=== PATIENT | male | born 1985 | race Caucasian/White ===

== ENCOUNTER 2019-01-09 14:26 | Emergency (ER) | payer MEDICAID, SELFPAY ==
[~2019-01-09] VITALS: Ht 180.3 cm; Wt 85.8 kg
[2019-01-09 14:35] VITALS: BP 127/74
== END 2019-01-09 15:25 | disposition home or self-care (01) ==
LOC: ED 15:16
DX: L02.11 Cutaneous abscess of neck (principal); Z88.0 Allergy status to penicillin; Z88.2 Allergy status to sulfonamides
CPT/HCPCS: 10060; 99283

== ENCOUNTER 2019-08-09 00:50 | Emergency (ER) | payer MEDICAID ==
[~2019-08-09] VITALS: Ht 180.3 cm; Wt 86.9 kg
[2019-08-09] MEDS ORDERED: KETOROLAC 60 MG/2 ML ONE (01:13)
[2019-08-09] MEDS ORDERED: ALBUTEROL SULFATE 2.5 MG/3 ML NPPB ONE (01:30)
[2019-08-09] MEDS ORDERED: KETOROLAC 30 MG/1 ML IM ONE (01:30)
--- NOTE | 2019-08-09 01:30 | NUR ---
REPORT RECEIVED FROM MÓNICA FERREIRA RN. FIRST CONTACT WITH PATIENT: THIS IS A 33 YO MALE COMING IN FOR COUGH/FLU LIKE SYMPTOMS FOR THE PAST 2-3 DAYS, DIARRHEA STARTING TODAY. PATIENT STATES HIS COWORKER AND HIS FAMILY ARE ON QUARANTINE FOR THE NEXT 4 DAYS FOR INFLUENZA B. PATIENT CURRENTLY C/O RIGHT RIB PAIN "I THINK IT WAS FRACTURED AND THE COUGHING IS MAKING IT WORSE", COUGH/ SOB. LUNG SOUNDS AUSCULTATED, RIGHT MIDDLE AND LOWER LOBE INSPIRATORY RHONCHI HEARD, WELL LEFT LOWER LOBE. VSS, NAD AT THIS TIME, RT IN ROOM. CXR COMPLETED.
[2019-08-09 01:35] LABS: RAPID INFLUENZA A Negative (Negative); RAPID INFLUENZA B Negative (Negative)
[2019-08-09] MEDS ORDERED: CLINDAMYCIN 300 MG CAPSULE ONE (02:10)
[2019-08-09] MEDS ORDERED: HYDROcodone/APAP 5/325 TABLET ONE (02:10)
--- NOTE | 2019-08-09 02:17 | NUR ---
PATIENT MEDICATED PER EMAR
[2019-08-09] MEDS ORDERED: CLINDAMYCIN 300 MG CAPSULE PO ONE (02:30)
[2019-08-09] MEDS ORDERED: HYDROcodone/APAP 5/325 TABLET PO ONE (02:30)
[2019-08-09 02:42] VITALS: BP 120/78
--- NOTE | 2019-08-09 02:42 | NUR ---
Patient given discharge instructions and they have confirmed that they understand the instructions. Patient ambulatory with steady gait. Addendum: 08/09/19 at 0257 by DEMAR Paient aware he is to self-isolate for the next 3 days or until phone call receivd with COVID results
== END 2019-08-09 02:58 | disposition home or self-care (01) ==
LOC: ED 02:45
DX: J20.8 Acute bronchitis due to other specified organisms (principal); Z20.828 Contact with and (suspected) exposure to other viral communicable diseases; B97.89 Other viral agents as the cause of diseases classified elsewhere; K61.1 Rectal abscess; F17.200 Nicotine dependence, unspecified, uncomplicated
CPT/HCPCS: 71045; 87400; 94640; 96372; 99284; J1885; J7512; J7613

== ENCOUNTER 2020-07-23 17:12 | Emergency (ER) | payer MEDICAID ==
[~2020-07-23] VITALS: Ht 180.3 cm; Wt 89.9 kg
--- NOTE | 2020-07-23 17:39 | NUR ---
PT TO ROOM FROM TRIAGE. PT STATED THAT HE FELL IN THE SHOWER LAST WEEK ON HIS TESTICLES. 2 DAYS AGO, HE STARTED EXPERIENCING SWELLING IN HIS LEFT TESTICLE AND NOTED BLOOD IN HIS SEMEN. PT STATED THAT HE WENT TO THE [facility] TO GET TESTED FOR STD'S, BUT EVERYTHING WAS NEGATIVE. PT REPORTING 10/10 PAIN. PT DENIES ANY DIFFICULTY OR PAINFUL URINATION.
--- NOTE | 2020-07-23 18:32 | NUR ---
ER PA AT BEDSIDE FOR EVALUATION
[2020-07-23] MEDS ORDERED: HYDROmorphone 1 MG/ML, 1ML INJ ONE ×2 (18:37→20:25)
--- NOTE | 2020-07-23 18:48 | NUR ---
REPORT GIVEN TO FRED
[2020-07-23] MEDS ORDERED: HYDROmorphone 1 MG/ML, 1ML INJ IM ONE ×2 (19:00→20:00)
[2020-07-23 19:02] LABS: MICROSCOPIC INDICATED
[2020-07-23 20:29] VITALS: BP 124/54
== END 2020-07-23 21:13 | disposition home or self-care (01) ==
LOC: ED 17:45
DX: N45.2 Orchitis (principal); W01.0XXA Fall on same level from slipping, tripping and stumbling without subsequent striking against object, initial encounter; Y93.89 Activity, other specified; Y92.89 Other specified places as the place of occurrence of the external cause; Y99.8 Other external cause status
CPT/HCPCS: 76870; 81001; 87086; 96372; 99284; J1170

== ENCOUNTER 2020-07-30 10:37 | Emergency (ER) | payer MEDICAID ==
[~2020-07-30] VITALS: Ht 180.3 cm; Wt 88.9 kg
--- NOTE | 2020-07-30 11:18 | NUR ---
PT HERE WITH C/O LEFT TESTICLE PAIN AND SWELLING, PT STATES HE CAME IN 6 DAYS AGO AND WAS PRESCRIBED ABX, PT REPORTS SWELLING HAS INCREASED AND SPREAD TO ANUS AREA.
[2020-07-30] MEDS ORDERED: HYDROcodone/APAP 5/325 TABLET ONE (11:46)
[2020-07-30] MEDS ORDERED: HYDROcodone/APAP 5/325 TABLET PO ONE (12:00)
--- NOTE | 2020-07-30 12:11 | NUR ---
US AT BEDSIDE.
[2020-07-30] MEDS ORDERED: LIDOCAINE-MPF 1%, 5ML ONE (13:08)
[2020-07-30] MEDS ORDERED: LIDOCAINE-MPF 1%, 5ML INFIL ONE (13:30)
--- NOTE | 2020-07-30 13:58 | NUR ---
REPORT TO MARINA BENITEZ.
[2020-07-30 15:16] VITALS: BP 125/74
== END 2020-07-30 15:34 | disposition home or self-care (01) ==
LOC: ED 15:00
DX: N45.2 Orchitis (principal); N50.812 Left testicular pain; Z88.0 Allergy status to penicillin; Z88.2 Allergy status to sulfonamides
CPT/HCPCS: 46040; 76870; 99284

== ENCOUNTER 2020-12-28 14:11 | Emergency (ER) | payer MEDICAID ==
[~2020-12-28] VITALS: Ht 180.3 cm; Wt 97.1 kg
[2020-12-28 14:14] VITALS: BP 114/66
--- NOTE | 2020-12-28 14:25 | NUR ---
FIRST CONTACT: PT W/ C/O ABCESS UNDER TESTICLES. PT TO ROOM WITH STEADY GAIT. POSTIONED TO COMFORT. ATTACHED TO MONITORS. VSS. ADAIR.
[2020-12-28] MEDS ORDERED: ACETAMINOPHEN 500 MG TABLET ONE (14:57)
[2020-12-28] MEDS ORDERED: ACETAMINOPHEN 500 MG TABLET PO ONE (15:00)
[2020-12-28] MEDS ORDERED: CLINDAMYCIN 300 MG CAPSULE PO ONE (15:00)
[2020-12-28] MEDS ORDERED: CLINDAMYCIN 300 MG CAPSULE ONE (15:02)
--- NOTE | 2020-12-28 15:07 | NUR ---
Patientgiven discharge instructions and they have confirmed that they understand the instructions. Patient ambulatory with steady gait. NAD, all questions answered appropriately, denies additional needs at this time. No personal belongings left in room after discharge.
== END 2020-12-28 15:36 | disposition home or self-care (01) ==
LOC: ED 15:10
DX: K61.0 Anal abscess (principal)
CPT/HCPCS: 99283